=== PATIENT | female | born 1955 | race Two or more races ===

== ENCOUNTER 2019-01-18 00:47 | Emergency (ER) | payer MEDICAID, MEDICARE ==
[~2019-01-18] VITALS: Ht 157.5 cm; Wt 70.4 kg
[2019-01-18 00:49] VITALS: BP 136/85
--- NOTE | 2019-01-18 00:54 | NUR ---
TASK RN: PT TO ED W/ CO PRODUCTIVE COUGH X THREE DAYS. +CP WITH COUGHING. FREQUENT DRY COUGH NOTED IN TRIAGE. RESPIRATIONS EVEN AND UNLABORED; PT AFEBRILE IN TRIAGE. SPO2 >90% ON RA.
--- NOTE | 2019-01-18 01:05 | NUR ---
REPORT FROM [facility] PT IN NAD
[2019-01-18] MEDS ORDERED: GUAIFENESIN/COD200MG-20MG/10ML LIQUID PO STA (01:07)
== END 2019-01-18 02:02 | disposition home or self-care (01) ==
LOC: ED 01:31
DX: J06.9 Acute upper respiratory infection, unspecified (principal); M19.90 Unspecified osteoarthritis, unspecified site
CPT/HCPCS: 71046; 99283